=== PATIENT | male | born 1955 | race Caucasian/White ===

== ENCOUNTER 2023-11-01 10:48 | Outpatient (CLI) | payer MEDICARE, MEDICAID, SELFPAY ==
--- NOTE | ~2023-11-01 | PE_ITS ---
EXAMINATION: PET_PETPSMAST_PT DATE: 11/01/2023 14:18 INDICATION: Prostate cancer. TECHNIQUE: 4.592 mCi of Ga-68 gozetotide was administered intravenously. Low dose computed tomography (CT) images were acquired from the base of the brain to the proximal thighs for attenuation correcti on and anatomic localization. Automated exposure control was employed. Dose-length product (DLP) was 1190 mGy-cm. Positron emission tomography (PET) images were acquired in the same distribution. COMPARISON: None FINDINGS: Head/neck: There are no pathologically enlarged lymph nodes. Chest: The lungs demonstrate mild atelectasis. A calcified left lung nodule is consistent with old gr anulomatous disease. No pleural effusion. The heart size is normal. No pericardial effusion. Abdomen/pelvis/proximal thighs: There is diffuse hepatic steatosis. Calcifications in the spleen are consistent with old granulomatous disease. The gallbladder, pancreas, adrenal glands, and kidneys are normal. There is no urolithiasis. The prostate is mildly enlarged. There is increased activity in th e prostate bilaterally with a maximum SUV of 7.5. There is a left inguinal hernia containing fat. The re are no dilated loops of bowel. The appendix is normal. There are no pathologically enlarged lymph nodes. There is no free intraperitoneal fluid. There is no osseous malignancy. IMPRESSION: 1. Mildly enlarged prostate with increased activity, consistent with primary malignancy. No evidence of metastatic disease. Reviewed, dictated and finalized at location A. IMPRESSION: 1. Mildly enlarged prostate with increased activity, consistent with primary ma lignancy. No evidence of metastatic disease.
== END 2023-11-01 10:49 | disposition home or self-care (01) ==
PROVIDERS: PCP Family Medicine; Visit Provider Urology
DX: C61 Malignant neoplasm of prostate (principal); N40.0 Benign prostatic hyperplasia without lower urinary tract symptoms
CPT/HCPCS: 78815; A9596